=== PATIENT | male | born 2000 ===

== ENCOUNTER 2018-08-26 17:36 | Emergency (ER) | payer OTHER ==
[~2018-08-26] VITALS: Ht 188 cm; Wt 107.0 kg
[2018-08-26 17:54] VITALS: BP 122/69
== END 2018-08-26 18:26 | disposition home or self-care (01) ==
LOC: ER 17:36
DX: M79.675 Pain in left toe(s) (principal); M79.674 Pain in right toe(s)
CPT/HCPCS: 99281